=== PATIENT | female | born 1985 | race Caucasian/White ===

== ENCOUNTER → 2017-03-22 | Outpatient (CLI) | payer MEDICAID ==
--- NOTE | ~2017-03-22 | NDGEN ---
PATIENT'S NAME: RADHA LLANOS [facility] AGE: 32 Y [address] ROOM: [place] [address] LOCATION: [facility] ADMIT DATE: 03/22/2017 Neurodiagnostics DISCHARGE DATE: FAMILY PHYSICIAN: TANIA KWON MD ATTENDING PHYSICIAN: AMANDA BRADY PROCEDURE: ELECTROENCEPHALOGRAM DATE OF PROCEDURE: 03/22/2017 PROCEDURE PERFORMED: EEG. TIME: The patient had this EEG done on 03/22/2017 at 11:40 a.m. DESCRIPTION OF PROCEDURE: This is a 32-year-old female patient who is assessed on this EEG for any evidence of abnormalities in the background rhythm or epileptiform features. This is a standard 21-lead EEG done with hyperventilation. The patient was alert and did not become drowsy. Her eyes were open during the whole study. The general background rhythm revealed 10- 12 hertz alpha rhythm which had a normal sinusoidal pattern and remained stable throughout the whole recording. At no time was there any changes in the background rhythm. There was some minor slowing did take place with a bit of drowsiness. At no time was there any epileptiform features seen and no seizures were recorded. IMPRESSION: Normal EEG. MD KENIA PERRY/jose manuell /[id number] dtt: 04/03/17 1741 , AMANDA BRADY. dtd: 03/22/17 2230
== END | disposition disaster alternative care site (69) ==
LOC: GNEU 11:00
DX: R20.2 Paresthesia of skin (principal); R56.9 Unspecified convulsions

== ENCOUNTER 2017-03-29 13:41 | Emergency (ER) | payer MEDICAID ==
--- NOTE | ~2017-03-29 | ER ---
PATIENT'S NAME: RADHA LLANOS [facility] AGE: 32 Y [address] ROOM: [place] [address] LOCATION: [facility] ADMIT DATE: 03/29/2017 ER/Outpatient Report DISCHARGE DATE: 03/29/2017 FAMILY PHYSICIAN: Ilda Estevez MD ATTENDING PHYSICIAN: Lorena Uriarte CHIEF COMPLAINT: Seen on 03/29/2017, for complaints of abdominal pain. HISTORY OF PRESENT ILLNESS: This patient reports vomiting for the past 4-5 days. She states she has not kept anything down. She complains of pain in her right upper quadrant, although on a first encounter, it was noted that she was holding her hands across both sides of her lower rib cage. The patient states she has not had a bowel movement for 3 days, but she has not had anything to eat for the past 4- 5 days. She reports the pain increases when she takes a deep breath, but is present under her right ribs all the time. PAST MEDICAL HISTORY: She is epileptic, recently started Tegretol. She has had lap band surgery with revision after a trauma. Currently, there is no fluid in the band. Medullary sponge disorder. The patient has had gallbladder ultrasound and a HIDA scan 2 years ago. They were going to remove her gallbladder when they did a lap band revision; however, for some reason they did not. The patient is unsure exactly why. Hysterectomy. PAST SURGICAL HISTORY: Tonsillectomy, hysterectomy. SOCIAL HISTORY: She smokes 4 cigarettes a day. She is a former meth user, having stopped just 1 month ago. She denies any alcohol use. ALLERGIES: NUBAIN, MORPHINE, AND IV ZOFRAN. CURRENT MEDICATIONS: Tegretol 200 mg twice daily. REVIEW OF SYSTEMS: GENERAL: The patient states she lost 104 pounds after a lap band surgery in 2010, and she has currently gained back approximately 20 pounds. The patient denies any known fevers. She states she has felt cold and hot in the last few days. HEENT: No headache. No vision changes. No cough or congestion. PATIENT'S NAME: RADHA LLANOS [facility] AGE: 32 Y [address] ROOM: [place] [address] LOCATION: [facility] ADMIT DATE: 03/29/2017 ER/Outpatient Report DISCHARGE DATE: 03/29/2017 FAMILY PHYSICIAN: Ilda Estevez MD ATTENDING PHYSICIAN: Lorena Uriarte CARDIOVASCULAR: No chest pains. RESPIRATORY: No shortness of breath or cough. She does state that it hurts to take a deep breath in her right upper quadrant of her abdomen. GI: Nausea and vomiting as previously mentioned. No diarrhea. She has not had a bowel movement for the last 3 days; however, had regular bowel movements prior to this. : No urgency, frequency, or dysuria. NEURO: Seizure disorder. MUSCULOSKELETAL: No complaints. HEMATOLOGY: No history of bleeding disorder. SKIN: No new rashes or lesions. ENDOCRINE: No complaints. PSYCH: The patient states she sleeps all the time. PHYSICAL EXAMINATION: VITAL SIGNS: Temperature is 97.5, pulse of 80, respiratory rate of 20, blood pressure 122/68, room air oxygen saturation 96%. GENERAL APPEARANCE: The patient is alert and oriented. [place], warm, and dry. Holding her hands across her lower ribs bilaterally. She has multiple piercings and poor dental care, dark discolorations of her teeth. HEENT: Head is normocephalic. Eyes PERRL. Ears were not examined. Nose not examined. Pharynx is without edema, erythema, or exudate. Mucous membranes moist. NECK: Supple. No lymphadenopathy. LUNGS: Clear to anterior-posterior auscultation. No adventitious lung sounds. Normal respiratory effort. HEART: Rate is regular. Normal S1, S2. No murmurs. ABDOMEN: Soft, nondistended. Bowel sounds are present in all 4 quadrants. There is minimal discomfort to palpation in the right upper quadrant. The port for her lap band is easily palpable. No CVA tenderness. EXTREMITIES: Without edema. Cap refill less than 3 seconds. Peripheral pulses are 2+. NEURO: Cranial nerves 2 through 12 are grossly intact. LABORATORY DATA: White count is 6.1, hemoglobin 13.7, hematocrit 40.9, and platelet count 232. Sodium 141, potassium 4.4, glucose of 79, BUN of 13, creatinine 0.8. Liver enzymes are within normal limits. Amylase of 59, lipase 244. CRP of 0.63. ER COURSE: The patient was noted to be hugging and kissing her boyfriend while waiting for lab results. She was found asleep in her boyfriend's arms on the ER cot when I went down to review lab results with her. IMPRESSION AND ASSESSMENT: Vomiting and right upper quadrant pain, etiology undetermined. PATIENT'S NAME: RADHA LLANOS [facility] AGE: 32 Y [address] ROOM: [place] [address] LOCATION: [facility] ADMIT DATE: 03/29/2017 ER/Outpatient Report DISCHARGE DATE: 03/29/2017 FAMILY PHYSICIAN: Ilda Estevez MD ATTENDING PHYSICIAN: Lorena Uriarte DISPOSITION AND PLAN: The patient was given ODT Zofran #5 to use as needed. She is encouraged to increase her fluid intake and clear liquid diet. I just told her to have a clear liquid diet and follow up with her primary care provider in 1 to 2 days if not better sooner or if worse. She is to follow up if she has any fevers, change in her pain, or any other concerns. SUMMER LOPEZ, JUAN FOR LORENA URIARTE DO DP/ashley /[id number] d: 03/30/17 0027 t: 04/08/17 1419, OUTPATIENT REPORT
[2017-03-29 15:01] LABS: BASOPHIL % 0.3 %; EOSINOPHIL # 0.1 K/uL (0.0-0.5); EOSINOPHIL % 1.5 %; HEMATOCRIT 40.9 % (33.0-46.0); HEMOGLOBIN 13.7 g/dL (11.0-15.0); IMMATURE GRANULOCYTE % 0.2 %; LYMPHOCYTE % 32.7 %; MCH 29.4 pg (27.0-34.0); MCHC 33.5 gm/dL (32.0-36.5); MCV 87.8 fl (83.0-98.0); MONOCYTE # 0.7 K/uL (0.0-1.0); MONOCYTE % 10.7 %; MPV 9.6 fl (9.4-12.4); NEUTROPHIL # (ANC) 3.3 K/uL (1.8-7.8); NEUTROPHIL % 54.6 %; NRBC % 0 /100WBC (0-0.00); PLATELET COUNT 232 K/uL (150-450); RBC 4.66 M/uL (3.50-5.50); RDW-CV 12.9 % (11.9-14.6); WBC 6.1 K/uL (4.0-11.0)
[2017-03-29 15:20] LABS: ALBUMIN 3.5 gm/dL (3.5-5.0); ALK PHOS 44 IU/L (33-138); ALT 18 IU/L (12-78); ANION GAP 8.4 (10.0-19.0); AST 14 IU/L (10-40); BLOOD UREA NITROGEN 13 mg/dL (6-24); CALCIUM 8.5 mg/dL (8.5-10.5); CHLORIDE 109 mMol/L (96-110); CO2 28 mMol/L (22-32); CREATININE 0.8 mg/dL (0.5-1.1); ESTIMATED GFR (MDRD EQUATION) > 60; POTASSIUM 4.4 mMol/L (3.7-5.1); SODIUM 141 mMol/L (135-145); TOTAL BILIRUBIN 0.3 mg/dL (0.0-1.5); TOTAL PROTEIN 7.1 g/dL (6.0-8.4)
== END 2017-03-29 15:47 | disposition disaster alternative care site (69) ==
LOC: GMED 13:41
PROVIDERS: Emergency Medicine
DX: R10.11 Right upper quadrant pain (principal); R11.10 Vomiting, unspecified; F17.210 Nicotine dependence, cigarettes, uncomplicated; Z98.84 Bariatric surgery status; Z90.710 Acquired absence of both cervix and uterus; Z90.89 Acquired absence of other organs; Z88.5 Allergy status to narcotic agent; Z88.8 Allergy status to other drugs, medicaments and biological substances; Z79.899 Other long term (current) drug therapy

== ENCOUNTER → 2017-04-17 | Outpatient (CLI) | payer MEDICAID | END | disposition disaster alternative care site (69) | LOC: LGSMG 13:16 | DX: R32 Unspecified urinary incontinence (principal) ==

== ENCOUNTER 2017-05-05 12:37 | Emergency (ER) | payer MEDICAID ==
--- NOTE | ~2017-05-05 | ER ---
PATIENT'S NAME: RADHA LLANOS [facility] AGE: 32 Y [address] ROOM: [place] [address] LOCATION: ED ADMIT DATE: 05/05/2017 ER/Outpatient Report DISCHARGE DATE: 05/05/2017 FAMILY PHYSICIAN: Diana Perea APRN ATTENDING PHYSICIAN: Miles Cornelius CHIEF COMPLAINT: Headache. HISTORY OF PRESENT ILLNESS: Ms. Llanos presents for evaluation of headache. She states it is associated with dizziness that presented last night, however, the headache started at 12:30, and she presented immediately to the ER. She states that she had a headache similar to this one other time related to Keppra that she took. She states that it affects everything for her, and she feels like "my eyes are going to pop out of my head!" She is crying. She has a history of intravenous and stimulant drug use. She states she has a family history of brain bleed type stroke event. She has no known history of hypertension or connective tissue disorder. She denies any fevers, chills, nausea, or vomiting. She has not taken anything to make this better. She does have a history of epilepsy and gastroparesis as well as morbid obesity, status post lap band procedure. PAST MEDICAL HISTORY: Documented on the record and reviewed by me. SOCIAL HISTORY: Documented on the record and reviewed by me. MEDICATIONS: Documented on the record and reviewed by me. ALLERGIES: DOCUMENTED ON THE RECORD AND REVIEWED BY ME. REVIEW OF SYSTEMS: All systems are reviewed and negative except as noted in the HPI. PHYSICAL EXAMINATION: VITAL SIGNS: Blood pressure 136/65, pulse 110, respiratory rate is 24, temperature 99.4, SpO2 is 97% on room air. Pain is rated at 9 to 10 out of 10. GENERAL: An age appropriate female, upright on exam table, hysterically crying, rocking, and fidgeting. She does not acknowledge examiner initially. PATIENT'S NAME: RADHA LLANOS [facility] AGE: 32 Y [address] ROOM: [place] [address] LOCATION: [facility] ADMIT DATE: 05/05/2017 ER/Outpatient Report DISCHARGE DATE: 05/05/2017 FAMILY PHYSICIAN: Diana Perea APRN ATTENDING PHYSICIAN: Miles Cornelius She is somewhat easily re-directable, and her behavior improves markedly during interaction, conversation. NEURO: The patient is awake and alert. She is moving her head vigorously. She is crying vigorously as well. She does follow commands. She walks with no gait abnormalities. No focal deficits. No asymmetry. HEENT: Normocephalic, atraumatic. Eyes are PERRL. Oropharynx is clear. The patient has very poor oral hygiene. NECK: Supple. Trachea is midline. CHEST: Heart is regular rate and rhythm with borderline tachycardia. LUNGS: Clear to auscultation bilateral. No rhonchi, wheezes, or rales. ABDOMEN: Soft, nontender, and nondistended. No rebound or guarding. BACK: Normal to inspection and palpation. No CVA tenderness. EXTREMITIES: Warm and well perfused with no edema or deformities. SKIN: Clean, dry, intact. No rashes. LABORATORY DATA AND X-RAYS: Head CT was obtained shortly after arrival to exclude intracranial hemorrhage, was read as negative per Radiology. The patient received labs with no significant electrolyte abnormalities other than a chloride of 111. Serum is unremarkable. Renal function and hepatobiliary function are within normal limits. CBC with no abnormalities, and INR is 1. MRA of the brain was read as no aneurysm. No other abnormalities, and no stroke per Radiology. IMPRESSION: Headache. EMERGENCY DEPARTMENT COURSE: The patient was seen and evaluated as above. Given her risk factors and the severity of the headache, headache treatment was initiated with Compazine, Benadryl, and fluids. No acute intracranial bleed, but the patient does have risk factors for aneurysm. Thus, a CTA was obtained. There were no abnormalities per Radiology's review. The patient had near complete resolution of all symptoms after treatment. I offered a lumbar puncture, and the patient declined. She was feeling much better. She was conversant appropriate at that time. She will be discharged with instructions to follow up with primary care provider as needed or to return if worse. All questions answered, and the patient was discharged in good condition. MILES CORNELIUS MD PATIENT'S NAME: RADHA LLANOS [facility] AGE: 32 Y [address] ROOM: [place], [place] [address] LOCATION: [facility] ADMIT DATE: 05/05/2017 ER/Outpatient Report DISCHARGE DATE: 05/05/2017 FAMILY PHYSICIAN: Diana Perea APRN ATTENDING PHYSICIAN: Miles Cornelius/ashley /[id number] d: 05/05/178 t: 05/14/17 1001, OUTPATIENT REPORT
[2017-05-05 14:02] LABS: BASOPHIL % 0.2 %; HEMATOCRIT 41.4 % (33.0-46.0); HEMOGLOBIN 13.9 g/dL (11.0-15.0); LYMPHOCYTE % 35.2 %; MCH 29.4 pg (27.0-34.0); MCHC 33.6 gm/dL (32.0-36.5); MCV 87.7 fl (83.0-98.0); MONOCYTE # 0.4 K/uL (0.0-1.0); MONOCYTE % 7.2 %; MPV 10.3 fl (9.4-12.4); NEUTROPHIL # (ANC) 3.2 K/uL (1.8-7.8); NEUTROPHIL % 57.4 %; NRBC % 0 /100WBC (0-0.00); PLATELET COUNT 216 K/uL (150-450); RBC 4.72 M/uL (3.50-5.50); RDW-CV 12.4 % (11.9-14.6); WBC 5.6 K/uL (4.0-11.0)
[2017-05-05 14:12] LABS: INR - (THERAPEUTIC) 1.02 (0.92-1.07); PROTIME 10.7 SECONDS (9.8-11.4); PTT 27 SECONDS (25-32)
[2017-05-05 14:21] LABS: ALBUMIN 3.9 gm/dL (3.5-5.0); ALK PHOS 48 IU/L (33-138); ALT 28 IU/L (12-78); AST 18 IU/L (10-40); BLOOD UREA NITROGEN 7 mg/dL (6-24); CALCIUM 8.5 mg/dL (8.5-10.5); CHLORIDE 111 mMol/L (96-110); CO2 24 mMol/L (22-32); CREATININE 0.9 mg/dL (0.5-1.1); SODIUM 143 mMol/L (135-145); TOTAL BILIRUBIN 0.3 mg/dL (0.0-1.5); TOTAL PROTEIN 7.6 g/dL (6.0-8.4)
== END 2017-05-05 16:00 | disposition disaster alternative care site (69) ==
LOC: GMED 12:37
PROVIDERS: Emergency Medicine
DX: R51 Headache (principal); F17.210 Nicotine dependence, cigarettes, uncomplicated; G40.909 Epilepsy, unspecified, not intractable, without status epilepticus; Z88.5 Allergy status to narcotic agent; Z88.8 Allergy status to other drugs, medicaments and biological substances; Z79.899 Other long term (current) drug therapy; Z98.84 Bariatric surgery status; Z90.89 Acquired absence of other organs; Z90.49 Acquired absence of other specified parts of digestive tract
CPT/HCPCS: J0780; J1200; J7030

== ENCOUNTER → 2017-05-08 | Outpatient (CLI) | payer MEDICAID | END | disposition disaster alternative care site (69) | LOC: GRAD 10:57 | DX: R11.2 Nausea with vomiting, unspecified (principal) ==

== ENCOUNTER → 2017-05-10 | Outpatient (CLI) | payer MEDICAID | END | disposition disaster alternative care site (69) | LOC: GRAD 12:53 | DX: R11.2 Nausea with vomiting, unspecified (principal) ==

== ENCOUNTER 2017-06-08 13:15 | Emergency (ER) | payer MEDICAID ==
--- NOTE | ~2017-06-08 | ER ---
PATIENT'S NAME: RADHA LLANOS [facility] AGE: 32 Y [address] ROOM: [place] [address] LOCATION: ED ADMIT DATE: 06/08/2017 ER/Outpatient Report DISCHARGE DATE: 06/08/2017 FAMILY PHYSICIAN: Ilda Estevez MD ATTENDING PHYSICIAN: Cassi Gutierrez Time of Arrival: 1315 hours. Time of Evaluation: 1338 hours. IDENTIFICATION: A 32-year-old female. CHIEF COMPLAINT: Fever. HISTORY OF PRESENT ILLNESS: The patient is a 32-year-old female, status post VNS per Dr. Murguia, Neurosurgery, at [facility] on May 30 for her seizure disorder. For two days, she has had fever up to 101. She has had a cough nonproductive. Since yesterday, she has had some slight tenderness around her incision on her left upper chest. No other problems or concerns. No dysuria. No increased frequency of urination. No drainage from her incisions. ALLERGIES: NUBAIN, ZOFRAN, AND MORPHINE. CURRENT MEDICATIONS: 1. Tegretol 200 mg b.i.d. 2. Cefdinir 300 mg b.i.d. 3. Prozac 20 mg daily. 4. MiraLax 17 g daily. PAST MEDICAL HISTORY: Seizures, gastroparesis, medullary sponge kidney. PRIOR SURGERIES: Recent VNS May 30, Lap-Band 2011, hysterectomy, and T and A. SOCIAL HISTORY: The patient lives in [place]. She does not work outside the home. Tobacco use, she quit smoking 5 to 6 cigarettes a day almost two months ago. Alcohol use, denies. Drug use, denies. PRIMARY CARE PHYSICIAN: Dr. Estevez in [place]. PATIENT'S NAME: RADHA LLANOS [facility] AGE: 32 Y [address] ROOM: [place] [address] LOCATION: ED ADMIT DATE: 06/08/2017 ER/Outpatient Report DISCHARGE DATE: 06/08/2017 FAMILY PHYSICIAN: Ilda Estevez MD ATTENDING PHYSICIAN: Cassi Gutierrez PHYSICAL EXAMINATION: VITAL SIGNS: Weight 85.9 kg. Pulse 98, respirations 20, temperature 98.3, blood pressure 108/69, and saturations 96% on room air. GENERAL: A pleasant female, in no acute distress. HEENT: Head: Normocephalic, atraumatic. Ears: TMs translucent both ears. Nose: Mucosa pink. No lesions or drainage. Mouth: No lesions. Pharynx benign. NECK: Supple. No lymphadenopathy. No thyromegaly. Incision on the left side of her neck is clean, dry, and intact. No erythema or drainage, and no tenderness. LUNGS: Clear to auscultation. Breath sounds are equal. No rhonchi, wheezes, or rales. HEART: Regular rate and rhythm. No murmur, rub, or gallop. ABDOMEN: Bowel sounds present. Soft, nondistended, and nontender. SKIN: [place], warm, and dry. Incision over left upper chest with chromic suture still in place. Slight erythema right at the suture sites, but no surrounding erythema and no drainage. Minimally tender to palpation in the medial aspect of the incision, but there are no palpable deformities and again, no purulent drainage or erythema at that site. ABDOMEN: Soft, nondistended, and nontender. EXTREMITIES: No edema. No calf tenderness. LABORATORY DATA AND X-RAYS: Blood cultures x2 have been drawn, those results are pending. Procalcitonin less than 0.05. Chemistry panel; sodium 142, potassium 3.9, chloride 109, CO2 of 26, BUN 9, creatinine 0.7, and blood sugar 93. Liver enzymes normal. Lactate 0.8. UA negative. Urine culture pending. Hemoglobin 13.6, hematocrit 40.9, platelets 233, white count 5.3 with a normal differential. Urine hCG is negative. Two-view chest x-ray, hazy increased attenuation left infrahilar area and left base consistent with left lower lung infiltrate, electronic device at the upper left hemithorax with electrodes extending into the left thoracic inlet. IMPRESSION: Left lower lobe pneumonia. PLAN: Z-Shine as directed. Tylenol or ibuprofen for pain. Follow up with Dr. Estevez next week, follow up sooner if there any problems or concerns and I did discuss this with the neurosurgeon on-call for Dr. Murguia at [facility] who agreed with this plan of care. PATIENT'S NAME: RADHA LLANOS [facility] AGE: 32 Y [address] ROOM: [place], [place] [address] LOCATION: [facility] ADMIT DATE: 06/08/2017 ER/Outpatient Report DISCHARGE DATE: 06/08/2017 FAMILY PHYSICIAN: Ilda Estevez MD ATTENDING PHYSICIAN: Cassi Gutierrez CASSI GUTIERREZ MD CAR/modl /[id number] d: 06/08/172127 t: 06/09/17 0726, OUTPATIENT REPORT
[2017-06-08 14:11] LABS: BILIRUBIN URINE NEGATIVE (NEGATIVE); BLOOD URINE NEGATIVE /UL (NEGATIVE); COLOR URINE YELLOW (YELLOW); GLUCOSE URINE NEGATIVE (NEGATIVE); KETONE URINE NEGATIVE (NEGATIVE); LEUKOCYTES URINE NEGATIVE /UL (NEGATIVE); NITRITE URINE NEGATIVE (NEGATIVE); PROTEIN URINE 30 mg/dL (NEGATIVE); SPEC GRAVITY URINE 1.025 (1.003-1.035); TURBIDITY URINE 1+ (CLEAR); UROBILINOGEN URINE NORMAL (NORMAL)
[2017-06-08 14:29] LABS: BASOPHIL % 0.4 %; HEMATOCRIT 40.9 % (33.0-46.0); HEMOGLOBIN 13.6 g/dL (11.0-15.0); IMMATURE GRANULOCYTE % 0.4 %; LYMPHOCYTE # 0.7 K/uL (0.8-4.0); LYMPHOCYTE % 12.9 %; MCH 29.2 pg (27.0-34.0); MCHC 33.3 gm/dL (32.0-36.5); MONOCYTE # 0.4 K/uL (0.0-1.0); MONOCYTE % 7.4 %; MPV 9.8 fl (9.4-12.4); NEUTROPHIL # (ANC) 4.2 K/uL (1.8-7.8); NEUTROPHIL % 78.9 %; NRBC % 0 /100WBC (0-0.00); PLATELET COUNT 233 K/uL (150-450); RBC 4.65 M/uL (3.50-5.50); RDW-CV 12.6 % (11.9-14.6); WBC 5.3 K/uL (4.0-11.0)
[2017-06-08 14:37] LABS: BACTERIA URINE MODERATE (NEGATIVE); MUCUS URINE 1+ (NEGATIVE); RBC URINE NEGATIVE #/HPF (NEGATIVE); WBC URINE 0-2 #/HPF (NEGATIVE)
[2017-06-08 14:48] LABS: ALBUMIN 3.7 gm/dL (3.5-5.0); ALK PHOS 64 IU/L (33-138); ALT 20 IU/L (12-78); ANION GAP 10.9 (10.0-19.0); AST 12 IU/L (10-40); BLOOD UREA NITROGEN 9 mg/dL (6-24); CALCIUM 8.6 mg/dL (8.5-10.5); CHLORIDE 109 mMol/L (96-110); CO2 26 mMol/L (22-32); CREATININE 0.7 mg/dL (0.5-1.1); POTASSIUM 3.9 mMol/L (3.7-5.1); SODIUM 142 mMol/L (135-145); TOTAL BILIRUBIN 0.3 mg/dL (0.0-1.5); TOTAL PROTEIN 7.3 g/dL (6.0-8.4)
== END 2017-06-08 15:55 | disposition disaster alternative care site (69) ==
LOC: GMED 13:15
PROVIDERS: Family Medicine
DX: J18.9 Pneumonia, unspecified organism (principal); R56.9 Unspecified convulsions; Z88.5 Allergy status to narcotic agent; Z88.8 Allergy status to other drugs, medicaments and biological substances; Z79.899 Other long term (current) drug therapy; Z90.89 Acquired absence of other organs; Z90.710 Acquired absence of both cervix and uterus; Z98.84 Bariatric surgery status; Z87.891 Personal history of nicotine dependence